=== PATIENT | female | born 1975 | race Caucasian/White ===

== ENCOUNTER 2016-10-11 01:50 | Emergency (ER) | payer OTHER ==
[~2016-10-11] VITALS: Ht 154.9 cm; Wt 67.6 kg
[2016-10-11 05:14] LABS: ABSOLUTE BASOPHIL COUNT 0 /CUMM (0.0-0.2); ABSOLUTE EOSINOPHIL COUNT 0 /CUMM (0.0-0.7); ABSOLUTE GRANULOCYTE CT 5.1 /CUMM (1.4-6.5); ABSOLUTE LYMPH COUNT 0.8 /CUMM (1.2-3.4); ABSOLUTE MONOCYTE COUNT 0.6 /CUMM (0.10-0.60); BASOPHIL % 0.4 % (0.0-2.0); EOSINOPHIL % 0.2 % (0-5); GRANULOCYTE % 78.2 % (42.2-75.2); MEAN CORPUSCULAR VOLUME 88.2 FL (81.0-99.0); MEAN PLATELET VOLUME 9.9 FL (7.4-10.4); PLATELET COUNT 160 /CUMM (130-400); RBC DISTRIBUTION WIDTH 13.8 % (11.5-14.5); WHITE BLOOD CELL COUNT 6.5 /CUMM (4.8-10.8)
[2016-10-11] MEDS ORDERED: TRAMADOL HCL50 M1 PO (06:36)
[2016-10-11] MEDS ORDERED: ZOLPIDEM TARTRAT5 M1 PO (06:37)
[2016-10-11] MEDS ORDERED: DEXTROAMPHETAMIN5 M2 PO (06:37)
[2016-10-11] MEDS ORDERED: CYANOCOBAL1000 MCG/2 IM (06:38)
[2016-10-11] MEDS ORDERED: MECLIZINE HCL25 MG PO (06:38)
[2016-10-11] MEDS ORDERED: VITAMIN D31000 UNI1 PO (06:39)
[2016-10-11] MEDS ORDERED: B COMPLEX1 EACH PO (06:40)
[2016-10-11] MEDS ORDERED: CITRATE OF MAG300 ML PO (06:40)
[2016-10-11] MEDS ORDERED: OMEGA 3-6-9 11200 MG PO (06:42)
[2016-10-11] MEDS ORDERED: IRON GLYCINATE PO (06:42)
--- NOTE | 2016-10-11 06:57 | ED GENERAL ADULT ---
See Addendum History of Present Illness General Chief Complaint: General Adult Stated Complaint: CLAUDIO MULTI COMP Source: patient, family, old records Exam Limitations: no limitations Vital Signs & Intake/Output Vital Signs & Intake/Output Vital Signs Date Time Temp Pulse Resp B/P Pulse O2 O2 Flow FiO2 Ox Delivery Rate 10/11 0630 98.0 81 18 108/66 97 Room Air 10/11 0519 99.3 80 18 106/58 95 Room Air 10/11 0209 99.7 112 18 112/80 98 Room Air Allergies Coded Allergies: Influenza Virus Vaccines (Severe, MUSCULOSKELETAL DIFFICULTIES 10/11/16) ibuprofen (From ADVIL) (Severe, INCREASED HEART RATE 10/11/16) methylprednisolone (From SOLU-MEDROL) (Severe, UNKNOWN 10/11/16) naproxen (From ALEVE) (Severe, INCREASED HEART RATE 10/11/16) amoxicillin (From AUGMENTIN) (Mild, ITCHING 10/11/16) ciprofloxacin (From CIPRO) (Mild, ITCHING 10/11/16) clavulanic acid (From AUGMENTIN) (Mild, ITCHING 10/11/16) duloxetine (From CYMBALTA) (Mild, 10/11/16) egg (Mild, UNKNOWN 10/11/16) wheat (Mild, UNKNOWN 10/11/16) armodafinil (From NUVIGIL) (10/11/16) kiwi (UNKNOWN 10/11/16) naltrexone (UNKNOWN 10/11/16) sodium oxybate (From XYREM) (UNKNOWN 10/11/16) Reconcile Medications Cholecalciferol (Vitamin D3) (Vitamin D3) 1,000 UNIT CAPSULE 5,000 UNITS PO DAILY NEURO (Reported) Cyanocobalamin (Vitamin B-12) (Cyanocobalamin Injection) 1,000 MCG/ML VIAL 1 ML IM Q30D NEURO (Reported) Dextroamphetamine Sulfate 5 MG TABLET 1 TAB PO TIDPRN NARCOLEPSY (Reported) Fish Oil/Borage/Flax/Om3,6,9#1 ([place] 3-6-9 1,200 MG Softgel) 1,200 MG CAPSULE 1 CAP PO DAILY SUPPLEMENT (Reported) [IRON GLYCINATE] 29 MG TAB 1 TAB PO D SUPPLEMENT (Reported) Magnesium Citrate (Citrate Of Magnesia) 300 ML SOLUTION 296 ML PO QPM UNK ( Reported) Meclizine HCl 25 MG TABLET 1 TAB PO BID VERTIGO (Reported) Tramadol HCl 50 MG TABLET 1 TAB PO SI PAIN (Reported) 6 X DAILY Vitamin B Complex (B Complex) 1 EACH TABLET 1 TAB PO D SUPPLEMENT (Reported) Zolpidem Tartrate 5 MG TABLET 1 TAB PO QPMP SLEEP (Reported) Triage Note: PT SENT IN BY MS SPECIALIST. PT JUST COMPLETED THIRD DAY OF IVIG FOR MS. PT COMPLAINS OF HEADACHE, COLD SWEATS, STIFF NECK NAUSEA BUT NO VOMITING. THESE SYMPTOMS HAVE BEEN ON GOING SINCE YESTERDAY MORNIING. Triage Nurses Notes Reviewed? yes Onset: Gradual Duration: hour(s):, constant, continues in ED, getting worse Timing: recent history Injury Environment: home Severity: severe Modifying Factors: Worsens With: movement, other (light sound). Associated Symptoms: back pain LMP (ages 10-50): unknown : No Patient currently breastfeeds: No HPI: Last 3 days patient has had IV immunoglobulin for multiple sclerosis developing headache after the second day. The headache is increased in severity associated with nausea and photophobia back pain neck stiffness myalgia. She denies fever chills chest pain cough shortness of breath dysuria rash bleeding. Past History Travel History Traveled to [place] past 21 day No Medical History Any Pertinent Medical History? see below for history Neurological: ASPERGER'S SYNDROME NARCOLEPSY WITH CATAPLEXY Musculoskeletal: fibromyalgia, MULTIPLE SCLEROSIS IRENE-DANLOS SYNDROME DYSAUTONOMIA Surgical History Surgical History: non-contributory Psychosocial History What is your primary language Chinese Tobacco Use: Never used ETOH Use: denies use Illicit Drug Use: MEDICAL MARIJUANA Family History Hx Contributory? No Review of Systems Review of Systems Constitutional: Reports: no symptoms. EENTM: Reports: no symptoms. Respiratory: Reports: no symptoms. Cardiovascular: Reports: no symptoms. GI: Reports: no symptoms. Genitourinary: Reports: no symptoms. Musculoskeletal: Reports: see HPI, back pain, joint pain, muscle pain, neck pain. Skin: Reports: no symptoms. Neurological/Psychological: Reports: see HPI, headache. Hematologic/Endocrine: Reports: no symptoms. Immunologic/Allergic: Reports: no symptoms. All Other Systems: Reviewed and Negative Physical Exam Physical Exam General Appearance: well developed/nourished, alert, awake, anxious, severe distress, thin Head: atraumatic, normal appearance Eyes: Bilateral: normal appearance, PERRL, EOMI. Ears, Nose, Throat: normal pharynx, normal ENT inspection Neck: normal inspection, supple, limited range of motion, no midline tenderness Respiratory: normal breath sounds, chest non-tender, no respiratory distress, quiet respiration, lungs clear Cardiovascular: regular rate/rhythm, normal peripheral pulses, norml femoral pulses equa Peripheral Pulses: 4+ carotid (R), 4+ carotid (L) Gastrointestinal: normal bowel sounds, soft, non-tender, no organomegaly Back: normal inspection, normal range of motion Extremities: normal inspection, normal capillary refill, normal range of motion Neurologic/Psych: no motor/sensory deficits, awake, alert, oriented x 3, normal gait, normal mood/affect, head of [employer] II-XII nml as tested Reflexes: 2+: bicep (R), bicep (L). Skin: intact, normal color, warm/dry Lymphatic: no anterior cervical rai Core Measures ACS in differential dx? No CVA/TIA Diagnosis: No Severe Sepsis Present: No Septic Shock Present: No Progress Differential Diagnoses I considered the following diagnoses in my evaluation of the patient: Plan of Care: Orders Procedure Date/time Status COMPREHENSIVE METABOLIC PANEL 10/11 0431 Complete CBC WITHOUT DIFFERENTIAL 10/11 430 Complete Laboratory Tests 10/11/16 0508: Anion Gap 7, Estimated GFR > 60, BUN/Creatinine Ratio 12.5, Glucose 96, Calcium 8.8, Total Bilirubin 0.4, AST 23, ALT 33, Alkaline Phosphatase 63, Total Protein 7.8, Albumin 3.6, Globulin 4.2, Albumin/Globulin Ratio 0.9 L, CBC w Diff NO MAN DIFF REQ, RBC 4.20, MCV 88.2, MCH 30.0, RDW 13.8, MPV 9.9, Gran % 78.2 H, Lymphocytes % 12.4 L, Monocytes % 8.8, Eosinophils % 0.2, Basophils % 0.4, Absolute Granulocytes 5.1, Absolute Lymphocytes 0.8 L, Absolute Monocytes 0.6, Absolute Eosinophils 0, Absolute Basophils 0, PUBS MCHC 34.0 Initial ED EKG: none Hand-Off Endorsed To: YOANDY YUSUF,INOCENCIA Carranza Endorsed Time: 732 Pending: other (response to analgesia) Departure Departure Disposition: STILL A PATIENT Condition: Stable Clinical Impression Primary Impression: Adverse drug reaction Secondary Impressions: Headache Qualifiers: Headache type: other drug induced headache Intractability: intractable Qualified Code: G44.41 - Drug-induced headache, not elsewhere classified, intractable Referrals: UNKNOWN (PCP/Family) Departure Forms: Customer Survey General Discharge Information Critical Care Note Critical Care Note Critical Care Time: non-applicable
[2016-10-11] MEDS ORDERED: PERCOCET 5-3251 EACH PO (11:50)
[2016-10-11] MEDS ORDERED: DEXAMETHASONE2 M1 PO (11:50)
[2016-10-11] MEDS ORDERED: REGLAN10 M1 PO (11:50)
[2016-10-11 12:03] VITALS: BP 106/68
== END 2016-10-11 12:19 ==
LOC: ERH 01:50 → CANBEDREQ 10-12 08:22
PROVIDERS: Emergency Medicine
DX: T50.Z15A Adverse effect of immunoglobulin, initial encounter (principal); R51 Headache; R11.0 Nausea; M54.9 Dorsalgia, unspecified; M54.2 Cervicalgia
CPT/HCPCS: 96361; 96374; 96375; 96376; J1200; J1720; J2765